=== PATIENT | female | born 1960 | race Caucasian/White ===

== ENCOUNTER → 2019-04-28 | Outpatient (CLI) | payer BC ==
--- NOTE | 2019-04-28 10:24 | REP ---
Two-view chest: 04/28/2019. Indication: Cough. Comparison: None. Findings: The lungs are clear. There is no significant pleural effusion or pneumothorax. Cardiac silhouette is normal. Impression: Clear lungs. Electronically Signed by Aidan Curiel DO 04/28/2019 10:15 A
--- NOTE | 2019-04-28 10:44 | REP ---
RIGHT HAND, FOUR VIEWS: Four views of the right hand are performed. No fracture or dislocation is seen. There is mild diffuse narrowing of the 2nd through 5th distal interphalangeal joints. A tiny soft-tissue calcification is seen in the distal third digit. IMPRESSION: No acute fracture or dislocation. Mild degenerative changes. Electronically Signed by Main Marie MD 04/29/2019 05:31 P
== END ==
LOC: M LRY 09:44
PROVIDERS: ATTEND Nurse Practitioner Family
DX: S69.91XA Unspecified injury of right wrist, hand and finger(s), initial encounter (principal); X58.XXXA Exposure to other specified factors, initial encounter; Y92.89 Other specified places as the place of occurrence of the external cause; R05 Cough

== ENCOUNTER → 2025-03-17 | Outpatient (REF) | payer BC ==
[2025-03-17 17:41] LABS: APPEARANCE, URINE CLOUDY (CLEAR); BACTERIA, URINE AUTO 1+ (NEGATIVE); BILIRUBIN, URINE AUTO NEGATIVE (NEGATIVE); BLOOD, URINE BLOOD 3+ (NEGATIVE); GLUCOSE, URINE (UA) AUTO NEGATIVE (NEGATIVE); KETONE, URINE AUTO NEGATIVE (NEGATIVE); LEUKOCYTE ESTERASE, URINE AUTO 3+ (NEGATIVE); MUCUS, URINE SMALL (NEGATIVE); NITRITE, URINE AUTO NEGATIVE (NEGATIVE); PROTEIN, URINE AUTO NEGATIVE (NEGATIVE); RBC, URINE AUTO 4 /HPF (0-3); SPECIFIC GRAVITY URINE AUTO 1.004 (1.002-1.035); SQUAMOUS EPITHELIAL CELL UR AU 0 /HPF (0-6); UROBILINOGEN, URINE AUTO 0.2 mg/dL (0.0-2.0); WBC, URINE AUTO TNTC /HPF (0-3)
== END ==
LOC: M LAB REF 17:20 → EEVIPCON 17:20
PROVIDERS: ATTEND Physician Assistant
DX: N39.0 Urinary tract infection, site not specified (principal)